=== PATIENT | female | born 1940 | race Hispanic/Latino ===

== ENCOUNTER 2018-05-07 02:42 | Emergency (ER) | payer MEDICARE ==
[2018-05-07 02:42] VITALS: BMI 22.9
--- NOTE | 2018-05-07 03:22 | ED PDOC ---
Arrival/HPI - General Chief Complaint: Upper Extremity Problem/Injury Time Seen by Provider: 05/07/18 03:13 Historian: Patient, Family (Daughter) - History of Present Illness Narrative History of Present Illness (Text): 05/07/18 03:15 Charla Abreu is a 77 year old female, whose past medical history includes hypertension and CAD with 6 cardiac stents, who presents to the Emergency department accompanied by daughter complaining of right shoulder pain. Patient states she woke up from sleep tonight with right shoulder pain radiating down her arm right arm and to the right side of her neck. Patient is right-hand dominant and did not take any medication. Patient notes she recently had a tooth extracted this week. Patient denies any fever, chills, chest pain, shortness of breath, nausea, vomiting, diarrhea, urinary symptoms, back pain, neck pain, headache, dizziness, or any other complaints. Symptom Onset: Gradual Symptom Course: Unchanged Activities at Onset: Light Context: Home Past Medical History - Provider Review Nursing Documentation Reviewed: Yes - Infectious Disease Hx of Infectious Diseases: None - Cardiac Hx Hypertension: Yes Hx Pacemaker: No Other/Comment: x6 cardiac stents - Pulmonary Hx Respiratory Disorders: No - Neurological Hx Paralysis: No - Endocrine/Metabolic Hx Diabetes Mellitus Type 1: Yes - Hematological/Oncological Hx Blood Transfusions: No - Musculoskeletal/Rheumatological Hx Musculoskeletal Disorders: Yes - Psychiatric Hx Emotional Abuse: No Hx Physical Abuse: No Hx Substance Use: No - Anesthesia Hx Anesthesia: No Hx Anesthesia Reactions: No Hx Malignant Hyperthermia: No - Suicidal Assessment Feels Threatened In Home Enviroment: No Family/Social History - Physician Review Nursing Documentation Reviewed: Yes Family/Social History: Unknown Family HX Smoking Status: Never Smoked Hx Alcohol Use: Yes (OCCASSIONAL) Hx Substance Use: No Allergies/Home Meds Allergies/Adverse Reactions: Allergies No Known Allergies Allergy (Verified 05/07/18 02:51) Home Medications: Home Meds Medication Instructions Recorded Confirmed Lisinopril 20 mg PO BID 09/27/14 10/12/14 Rosuvastatin Calcium [Crestor] 10 mg PO QPM 09/27/14 10/12/14 amLODIPine [Norvasc] 5 mg PO QAM 09/27/14 10/12/14 Clopidogrel [Plavix] 75 mg PO DAILY 09/28/14 10/12/14 Metoprolol Succinate 50 mg PO DAILY 09/28/14 10/12/14 Aspirin 3 tab PO DAILY 10/11/14 10/12/14 Review of Systems - Physician Review All systems were reviewed & negative as marked: Yes - Review of Systems Constitutional: Normal. absent: Fevers Eyes: Normal ENT: Normal Respiratory: Normal. absent: SOB, Cough Cardiovascular: Normal. absent: Chest Pain Gastrointestinal: Normal. absent: Abdominal Pain, Diarrhea, Nausea, Vomiting Genitourinary Female: Normal Musculoskeletal: Normal Skin: Normal Neurological: Normal Endocrine: Normal Hemo/Lymphatic: Normal Psychiatric: Normal Physical Exam Vital Signs Reviewed: Yes Vital Signs Temp Pulse Resp BP Pulse Ox 05/07/18 02:54 99.0 F 82 18 196/97 H 100 Temperature: Afebrile Blood Pressure: Hypertensive Pulse: Regular Respiratory Rate: Normal Appearance: Positive for: Well-Appearing, Non-Toxic, Comfortable Pain Distress: None Mental Status: Positive for: Alert and Oriented X 3 - Systems Exam Head: Present: Atraumatic, Normocephalic Pupils: Present: PERRL Extroacular Muscles: Present: EOMI Conjunctiva: Present: Normal Mouth: Present: Moist Mucous Membranes Neck: Present: Normal Range of Motion Respiratory/Chest: Present: Clear to Auscultation, Good Air Exchange. No: Respiratory Distress, Accessory Muscle Use Cardiovascular: Present: Regular Rate and Rhythm, Normal S1, S2. No: Murmurs Abdomen: No: Tenderness, Distention, Peritoneal Signs Back: Present: Normal Inspection Upper Extremity: Present: Normal Inspection, Normal ROM, NORMAL PULSES, Neurovascularly Intact. No: Cyanosis, Edema, Swelling, Erythema, Temperature Abnormalties, Deformity Lower Extremity: Present: Normal Inspection. No: Edema Neurological: Present: GCS=15, CN II-XII Intact, Speech Normal Skin: Present: Warm, Dry, Normal Color. No: Rashes Psychiatric: Present: Alert, Oriented x 3, Normal Insight, Normal Concentration Medical Decision Making ED Course and Treatment: 05/07/18 03:15 Impression: 77 year old female complaining of right shoulder pain radiating down arm and up to neck. Plan: -- EKG -- Chest X-ray -- XR Cervical Spine -- XR Right Shoulder -- Labs, cardiac enzymes -- Urinalysis -- Percocet -- Morphine -- Reassess and disposition Progress Notes: Reviewed EKG, NSR at 81 bpm[address] Non-specific ST/T wave changes. 05/07/18 04:18 Reviewed radiology, XR Cervical Spine shows arthritic changes. XR Right Shoulder shows no acute processes. CXR shows no acute processes. pt improved with treatment, pt pain more muscular skeletal than cardiac will dc follow up pmd - Lab Interpretations I have reviewed the lab results: Yes - RAD Interpretation Management Nurse Rn: ED Physician - EKG Interpretation Interpreted by ED Physician: Yes Type: 12 lead EKG - Scribe Statement The provider has reviewed the documentation as recorded by the Radha Norris Provider Scribe Attestation: All medical record entries made by the Scribe were at my direction and personally dictated by me. I have reviewed the chart and agree that the record accurately reflects my personal performance of the history, physical exam, medical decision making, and the department course for this patient. I have also personally directed, reviewed, and agree with the discharge instructions and disposition. Disposition/Present on Arrival - Present on Arrival Any Indicators Present on Arrival: No History of DVT/PE: No History of Uncontrolled Diabetes: No Urinary Catheter: No History of Decub. Ulcer: No History Surgical Site Infection Following: None - Disposition Have Diagnosis and Disposition been Completed?: Yes Diagnosis: Shoulder pain, right Disposition: HOME/ ROUTINE Disposition Time: 06:30 Condition: IMPROVED Discharge Instructions (ExitCare): Shoulder Pain (DC) Prescriptions: Tramadol HCl [Ultram] 50 mg PO QID #12 tab Referrals: Quinn Crum MD [Staff Provider] - Follow up with primary Forms: [employer] ([place]ian)
[2018-05-07] MEDS ORDERED: Oxycodone/Acetaminophen 5/325 mg Tab PO STA (03:26)
[2018-05-07] MEDS ORDERED: Morphine 2 mg/ml ISec IVP STA (03:29)
[2018-05-07 03:54] LABS: ALB/GLOB RATIO 1.2 (1.1-1.8); ALBUMIN 4.5 g/dL (3.0-4.8); ALT/SGPT 25 U/L (7-56); AST/SGOT 26 U/L (14-36); BLOOD UREA NITROGEN 23 mg/dL (7-21); CALCIUM 10.1 mg/dL (8.4-10.5); GFR NON-AFRICAN AMERICAN 54
[2018-05-07 04:05] LABS: TROPONIN I < 0.01 ng/mL
[2018-05-07 04:15] LABS: BASO # 0.06 K/mm3 (0.0-2.0); BASO % 0.6 % (0.0-3.0); EOS # 0.3 (0.0-0.7); EOS % 3.4 % (1.5-5.0); GRAN # 4.45 (1.4-6.5); GRAN % 47.5 % (50.0-68.0); HEMOGLOBIN 11.6 g/dL (12.0-16.0); LYMPH # 3.7 (1.2-3.4); LYMPH % 39.4 % (22.0-35.0); MEAN CELL VOLUME 93.9 fl (80.0-105.0); MEAN CORPUSCULAR HEMOGLOBIN 30.7 pg (25.0-35.0); MEAN CORPUSCULAR HGB CONC 32.7 g/dl (31.0-37.0); MEAN PLATELET VOLUME 9.7 fl (7.0-11.0); MONO # 0.9 (0.1-0.6); MONO % 9.1 % (1.0-6.0); RBC 3.78 10^6/uL (3.5-6.1); RED CELL DISTRIBUTION WIDTH 12.9 % (11.5-14.5); WHITE BLOOD COUNT 9.4 10^3/uL (4.5-11.0)
[2018-05-07 06:31] VITALS: BP 148/78; PULSE 68; RESP 17; TEMP 98.8; O2SAT 98
--- NOTE | 2018-05-07 09:29 | CARD ---
APPROVED REPORT Date of service: 05/07/2018 EKG Measurement Heart [id number] <Conclusion> Normal sinus rhythm Nonspecific ST abnormality Abnormal ECG
--- NOTE | 2018-05-07 10:16 | RAD ---
Date of service: 05/07/2018 PROCEDURE: Radiographs of the Right Shoulder HISTORY: rt arm pain COMPARISON: No prior. FINDINGS: BONES: No acute fracture or destructive bony lesion identified. JOINTS: Limited degenerative cortical sclerosis is appreciated at the acromioclavicular and glenohumeral joints. No subluxation or dislocation identified. SOFT TISSUES: Normal. OTHER FINDINGS: None. IMPRESSION: Limited degenerative changes as discussed above. No acute fracture or dislocation right shoulder.
--- NOTE | 2018-05-07 10:21 | RAD ---
Date of service: 05/07/2018 PROCEDURE: Cervical Spine Radiographs. HISTORY: Pain. COMPARISON: None available. FINDINGS: BONES: Borderline spondylolisthesis C4 anterior to C5 felt to be on a degenerative basis given multilevel advanced facet joint degenerative arthropathy. No fracture. Dens Intact. DISC SPACES: Gross multilevel cervical spondylosis appreciated seen worst at C5-6 and C6-7. Moderate right C7 and mild left C6 and C7 root foraminal stenoses are degenerative, caused by uncovertebral and facet joint degenerative arthropathy. Diffuse facet joint degenerative changes are seen throughout the cervical spine bilaterally. SOFT TISSUES: Prevertebral soft tissues are unremarkable with paraspinal soft tissues are remarkable for likely carotid calcifications at the level of the carotid bulbs and right ICA. OTHER FINDINGS: None. IMPRESSION: No acute fracture is appreciated throughout the cervical spine. A limited degenerative spondylolisthesis appreciated C4-5, grade 1. Degenerative neural foraminal stenosis is infrequently encountered as discussed above bilaterally.
--- NOTE | 2018-05-07 10:22 | RAD ---
Date of service: 05/07/2018 HISTORY: pain COMPARISON: None available. FINDINGS: LUNGS: No active pulmonary disease. PLEURA: No significant pleural effusion identified, no pneumothorax apparent. CARDIOVASCULAR: Calcific atherosclerotic changes are seen related to the thoracic aorta. Normal cardiac size. No pulmonary vascular congestion. OSSEOUS STRUCTURES: No significant abnormalities. VISUALIZED UPPER ABDOMEN: Normal. OTHER FINDINGS: None. IMPRESSION: No acute cardiopulmonary disease appreciated.
== END 2018-05-07 06:30 | disposition home or self-care (01) ==
LOC: ED 02:42
DX: M25.511 Pain in right shoulder (principal); I10 Essential (primary) hypertension; I25.10 Atherosclerotic heart disease of native coronary artery without angina pectoris; Z95.5 Presence of coronary angioplasty implant and graft
CPT/HCPCS: 71045; 72050; 73030; 80053; 82550; 83615; 83735; 84484; 85025; 93005; 96374; 96375; 99284; J1885; J2270; J2405